=== PATIENT | male | born 1970 | race Caucasian/White ===

== ENCOUNTER 2018-11-21 09:54 | Emergency (ER) | payer BC, SELFPAY ==
[2018-11-21 10:00] VITALS: BP 137/84; PULSE 103; RESP 20; TEMP 36.5; O2SAT 99; BMI 41.0
--- NOTE | 2018-11-21 10:03 | DI.RAD.S_ITS ---
PROCEDURE: XR CHEST 2V INDICATIONS: short of breath TECHNIQUE: 2 views of the chest were acquired. COMPARISON: 07/30/15. FINDINGS: Surgical changes and devices: None. Lungs and pleura: Lungs are clear. No pleural effusions or pneumothorax. Mediastinum: Mediastinal contours are normal. Heart size is normal. Bones and chest wall: No suspicious bony abnormalities. Soft tissues appear unremarkable. IMPRESSION: No acute disease. No focal consolidation. Dictated by: Dion Boo M.D. on 11/21/2018 at 11:40 Approved by: Dion Boo M.D. on 11/21/2018 at 11:41
[2018-11-21 11:12] VITALS: BP 132/81; PULSE 92; RESP 17; O2SAT 96
--- NOTE | 2018-11-21 11:12 | PC.NURSE ---
pt reports, finished 5 day course of steroid yesterday for uvular edema, pt reports not better, now with chest tighntess, breathing not right. denies coughing. denies fever and vomiting. breath sound clear throughout.
[2018-11-21 12:24] LABS: Alanine Aminotransferase 95 IU/L (21-72); Albumin 4.1 g/dL (3.5-5.0); Albumin Globulin Ratio 1.5 (1.0-2.8); Alkaline Phosphatase 107 U/L (38-126); Aspartate Aminotransferase 45 IU/L (17-59); Bilirubin Total 0.6 mg/dL (0.2-1.3); Blood Urea Nitrogen 16 mg/dL (9-20); Calcium 8.8 mg/dL (8.4-10.2); Carbon Dioxide 30 mmol/L (22-32); Chloride 98 mmol/L (98-107); Creatine Kinase 62 U/L (55-170); Estimated Glomerular Filt Rate > 60.0 mL/min (>60); Globulin 2.8 g/dL (1.7-4.1); Glucose 81 mg/dL (70-100); HEMOLYSIS 16 (0-50); Sodium 138 mmol/L (137-145); Total Protein 6.9 g/dL (6.3-8.2)
[2018-11-21 12:28] LABS: Add Manual Diff / Slide Review NO; Basophils Absolute Auto 0 /uL (0-100); Basophils Percent Auto 0.2 % (0-2); Eosinophils Absolute Auto 200 /uL (0-450); Eosinophils Percent Auto 1.1 % (2-4); Hemoglobin 15.6 g/dL (13.5-17.5); Lymphocytes Absolute Auto 5700 /uL (1100-4500); Lymphocytes Percent Auto 32.7 % (25-40); Mean Corpuscular HGB Conc 33.3 % (30-36); Mean Corpuscular Hemoglobin 30.1 PG (26-34); Mean Corpuscular Volume 90.6 fL (80-100); Monocytes Absolute Auto 1300 /uL (0-900); Monocytes Percent Auto 7.7 % (3-14); Neutrophils Absolute Auto 10100 /uL (1500-7000); Neutrophils Percent Auto 58.3 % (50-75); Platelet Count 215 X10^3/uL (150-400); Red Blood Cell Count 5.19 X10^6/uL (4.5-5.9); Red Cell Distribution Width 13.8 % (11.6-14.8); White Blood Cell Count 17.3 X10^3/uL (4.5-11.0)
[2018-11-21 12:36] LABS: Troponin I < 0.012 ng/mL (0.01-0.034)
[2018-11-21 12:42] LABS: INR 0.9 (0.9-1.3); Prothrombin Time 10.5 SECONDS (10.1-12.7)
[2018-11-21 12:45] LABS: PTT Partial Thromboplastin Tim 29 SECONDS (26.4-36.2)
[2018-11-21 12:55] LABS: D Dimer < 200 ng/mL (<230)
--- NOTE | 2018-11-21 13:03 | ED.URI ---
HPI - URI/Sore Throat <Diana Castillo PA-C - Last Filed: 11/21/18 20:24> General Chief Complaint: Upper Respiratory Symptoms Stated Complaint: TROUBLE BREATHING Time Seen by Provider: 11/21/18 13:03 Source: patient and family Mode of arrival: ambulatory Limitations: no limitations History of Present Illness HPI Narrative: This 48-year-old male complains of gradually worsening sensation of pain and sticking ?down my esophagus? with eating. He states it is ?painful like rocks?. He states that he was referred to ENT for further evaluation and is supposed to have an appointment in about 6 weeks. He states about 2 weeks ago he was diagnosed with tonsillitis, strep negative, but had quite a bit of swelling and was treated with some prednisone for 5 days. He does not feel like that helped. He states that since that time, his difficulty swallowing has not been acutely worse that has been more persistent. He is able to swallow liquids without problem. He has not modified his diet, but states it is just more difficult for him to eat. He denies cough or wheeze. He denies chest congestion or fever. He has not had any earache or sinus symptoms. He states his chest feels tight, like he can't get a deep breath. he has a history of reactive airways and states his inhaler does seem to help that somewhat temporarily. He also has a history of acid reflux. He states that he has not had any chest pain aside from the pain with swallowing. He denies any new pain or swelling in his extremities or other new complaints today. Related Data Previous Rx's Medication Instructions Recorded albuterol sulfate 2.5 mg INHALATION Q2H PRN #180 ml 11/21/18 ipratropium-albuterol 3 ml INHALATION BID #90 ml 11/21/18 lidocaine HCl [Lidocaine Viscous] 10 ml PO Q4H PRN #200 ml 11/21/18 Allergies Allergy/AdvReac Type Severity Reaction Status Date / Time Penicillins [PENICILLINS] Allergy Unknown Unverified 11/12/17 12:31 Review of Systems <Diana Castillo PA-C - Last Filed: 11/21/18 20:24> Review of Systems ROS Unobtainable: All systems reviewed & are unremarkable except as noted in HPI and below PFSH <Diana Castillo PA-C - Last Filed: 11/21/18 20:24> Medical History (Updated 11/21/18 @ 14:51 by Diana Castillo PA-C) GERD (gastroesophageal reflux disease) (Acute) Reactive airways dysfunction syndrome (Acute) Carpal tunnel syndrome (Chronic 06/2017) Chronic back pain (Chronic Unknown) DDD (degenerative disc disease), cervical (Chronic 04/2017) Depression (Chronic Unknown) Edema (Chronic Unknown) Fibromyalgia (Chronic Unknown) Hyperlipemia (Chronic Unknown) Hypertension (Chronic Unknown) Migraines (Chronic Unknown) 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 HEENT: PERRL, EOMI, normal oropharynx, tonsils are large but not edematous, no exudate, uvula midline NECK: Thick, supple, no masses, trachea midline LUNGS: Clear to auscultation bilaterally, no cough on exam. CHEST: No TTP HEART: Rate and rhythm regular, normal S1 and S2, no S3 or S4. ABDOMEN: Soft, protuberant, nontender, nondistended, bowel sounds present x 4 quadrants, no masses palpable, no hepatosplenomegaly. EXTREMITIES: No edema, no calf tenderness DERMATOLOGIC: No jaundice or exanthem NEUROLOGIC: Alert and oriented with normal speech and coordination Initial Vital Signs Initial Vital Signs: Vital Signs Temperature 97.7 F 11/21/18 10:00 Pulse Rate 103 H 11/21/18 10:00 Respiratory Rate 20 11/21/18 10:00 Blood Pressure 137/84 11/21/18 10:00 Pulse Oximetry 99 11/21/18 10:00 <Hoa Smith DO - Last Filed: 11/22/18 07:30> Initial Vital Signs Initial Vital Signs: Vital Signs Temperature 97.7 F 11/21/18 10:00 Pulse Rate 103 H 11/21/18 10:00 Respiratory Rate 20 11/21/18 10:00 Blood Pressure 137/84 11/21/18 10:00 Pulse Oximetry 99 11/21/18 10:00 Course <Diana Castillo PA-C - Last Filed: 11/21/18 20:24> Additional Information: Patient is not feeling acutely worse today but mainly came in hoping to get some further evaluation and be able to see ENT sooner. Referral is already in place, but he has had more persistent dysphagia and odynophagia for about 2 weeks. He did report some improvement with GI cocktail and will continue this as needed and also restart his nebulizer treatments at home. He agreed to return if any acutely worsening symptoms Orders Ordered: Discontinued Medications Albuterol (Ventolin) 2.5 mg INH NOW ONE Stop: 11/21/18 13:20 Last Admin: 11/21/18 13:57 Dose: 2.5 mg Albuterol/Ipratropium (Duoneb) 3 ml INH NOW ONE Stop: 11/21/18 13:20 Last Admin: 11/21/18 13:57 Dose: 3 ml Al Hydrox/Mg Hydrox/Simethicone 20 ml/ Lidocaine HCl 15 ml 0 ml PO NOW ONE Stop: 11/21/18 13:20 Last Admin: 11/21/18 13:30 Dose: 35 ml Vital Signs - 8 hr 11/21/18 13:58 11/21/18 14:09 11/21/18 14:51 Pulse Rate 88 96 H Respiratory Rate 16 Blood Pressure [Left Arm] 106/71 111/67 Pulse Oximetry 98 <Hoa Smith, - Last Filed: 11/22/18 07:30> Orders Ordered: Discontinued Medications Albuterol (Ventolin) 2.5 mg INH NOW ONE Stop: 11/21/18 13:20 Last Admin: 11/21/18 13:57 Dose: 2.5 mg Albuterol/Ipratropium (Duoneb) 3 ml INH NOW ONE Stop: 11/21/18 13:20 Last Admin: 11/21/18 13:57 Dose: 3 ml Al Hydrox/Mg Hydrox/Simethicone 20 ml/ Lidocaine HCl 15 ml 0 ml PO NOW ONE Stop: 11/21/18 13:20 Last Admin: 11/21/18 13:30 Dose: 35 ml Vital Signs - 8 hr 11/21/18 13:58 11/21/18 14:09 11/21/18 14:51 Pulse Rate 88 96 H Respiratory Rate 16 Blood Pressure [Left Arm] 106/71 111/67 Pulse Oximetry 98 MDM - URI/Sore Throat <Diana Castillo PA-C - Last Filed: 11/21/18 20:24> Lab Data Attestation: I reviewed the patient's lab results. Result diagrams: 11/21/18 11:25 11/21/18 11:25 Lab Results 11/21/18 11/21/18 11/21/18 Range/Units 11:25 11:25 11:25 WBC 17.3 H (4.5-11.0) X10^3/uL RBC 5.19 (4.5-5.9) X10^6/uL Hgb 15.6 (13.5-17.5) g/dL Hct 47.0 (41-53) % MCV 90.6 (80-100) fL MCH 30.1 (26-34) PG MCHC 33.3 (30-36) % RDW 13.8 (11.6-14.8) % Plt Count 215 (150-400) X10^3/uL Neut % (Auto) 58.3 (50-75) % Lymph % (Auto) 32.7 (25-40) % [place] % (Auto) 7.7 (3-14) % Eos % (Auto) 1.1 L (2-4) % Baso % (Auto) 0.2 (0-2) % Neut # (Auto) 99611 H (0232-9104) /uL Lymph # (Auto) 5700 H (8878-7521) /uL [place] # (Auto) 1300 H (0-900) /uL Eos # (Auto) 200 (0-450) /uL Baso # (Auto) 0 (0-100) /uL PT 10.5 (10.1-12.7) SECONDS INR 0.9 (0.9-1.3) APTT 29 (26.4-36.2) SECONDS D-Dimer (<230) ng/mL Sodium 138 (137-145) mmol/L Potassium 4.0 (3.4-5.1) mmol/L Chloride 98 (98-107) mmol/L Carbon Dioxide 30 (22-32) mmol/L BUN 16 (9-20) mg/dL Creatinine 1.00 (0.66-1.25) mg/dL Estimated GFR > 60.0 (>60) mL/min BUN/Creatinine Ratio 16.0 (6-22) Glucose 81 (70-100) mg/dL Lactate (0.7-2.1) mmol/L Calcium 8.8 (8.4-10.2) mg/dL Total Bilirubin 0.6 (0.2-1.3) mg/dL AST 45 (17-59) IU/L ALT 95 H (21-72) IU/L Alkaline Phosphatase 107 (38-126) U/L Total Creatine Kinase 62 (55-170) U/L CK-MB (CK-2) TNP CK-MB (CK-2) Rel Index TNP Troponin I < 0.012 (0.01-0.034) ng/mL Total Protein 6.9 (6.3-8.2) g/dL Albumin 4.1 (3.5-5.0) g/dL Globulin 2.8 (1.7-4.1) g/dL Albumin/Globulin Ratio 1.5 (1.0-2.8) 11/21/18 11/21/18 Range/Units 11:25 13:05 WBC (4.5-11.0) X10^3/uL RBC (4.5-5.9) X10^6/uL Hgb (13.5-17.5) g/dL Hct (41-53) % MCV (80-100) fL MCH (26-34) PG MCHC (30-36) % RDW (11.6-14.8) % Plt Count (150-400) X10^3/uL Neut % (Auto) (50-75) % Lymph % (Auto) (25-40) % [place] % (Auto) (3-14) % Eos % (Auto) (2-4) % Baso % (Auto) (0-2) % Neut # (Auto) (2567-3537) /uL Lymph # (Auto) (4683-2614) /uL [place] # (Auto) (0-900) /uL Eos # (Auto) (0-450) /uL Baso # (Auto) (0-100) /uL PT (10.1-12.7) SECONDS INR (0.9-1.3) APTT (26.4-36.2) SECONDS D-Dimer < 200 (<230) ng/mL Sodium (137-145) mmol/L Potassium (3.4-5.1) mmol/L Chloride (98-107) mmol/L Carbon Dioxide (22-32) mmol/L BUN (9-20) mg/dL Creatinine (0.66-1.25) mg/dL Estimated GFR (>60) mL/min BUN/Creatinine Ratio (6-22) Glucose (70-100) mg/dL Lactate 1.5 (0.7-2.1) mmol/L Calcium (8.4-10.2) mg/dL Total Bilirubin (0.2-1.3) mg/dL AST (17-59) IU/L ALT (21-72) IU/L Alkaline Phosphatase (38-126) U/L Total Creatine Kinase (55-170) U/L CK-MB (CK-2) CK-MB (CK-2) Rel Index Troponin I (0.01-0.034) ng/mL Total Protein (6.3-8.2) g/dL Albumin (3.5-5.0) g/dL Globulin (1.7-4.1) g/dL Albumin/Globulin Ratio (1.0-2.8) Imaging Data Chest x-ray: Radiologist's impression: [address] [address] XRay Report Signed Patient: Angelita Sharif#: [id number] : 1970Acct:[id number] Age/Sex: 48 / MDate of Service: 11/21/18 Loc: ED Accession Number: [id number] Procedure: XR chest 2V Ordering Provider: Hoa Smith D.O. PROCEDURE: XR CHEST 2V INDICATIONS: short of breath TECHNIQUE: 2 views of the chest were acquired. COMPARISON: 07/30/15. FINDINGS: Surgical changes and devices: None. Lungs and pleura: Lungs are clear. No pleural effusions or pneumothorax. Mediastinum: Mediastinal contours are normal. Heart size is normal. Bones and chest wall: No suspicious bony abnormalities. Soft tissues appear unremarkable. IMPRESSION: No acute disease. No focal consolidation. Dictated by: Dion Boo M.D. on 11/21/2018 at 11:40 Approved by: Dion Boo M.D. on 11/21/2018 at 11:41 ECG Data Attestation: I personally reviewed and interpreted this ECG as follows: (Normal sinus rhythm rate 89, normal axis) <Hoa Smith DO - Last Filed: 11/22/18 07:30> Lab Data Lab Results 11/21/18 11/21/18 11/21/18 Range/Units 11:25 11:25 11:25 WBC 17.3 H (4.5-11.0) X10^3/uL RBC 5.19 (4.5-5.9) X10^6/uL Hgb 15.6 (13.5-17.5) g/dL Hct 47.0 (41-53) % MCV 90.6 (80-100) fL MCH 30.1 (26-34) PG MCHC 33.3 (30-36) % RDW 13.8 (11.6-14.8) % Plt Count 215 (150-400) X10^3/uL Neut % (Auto) 58.3 (50-75) % Lymph % (Auto) 32.7 (25-40) % [place] % (Auto) 7.7 (3-14) % Eos % (Auto) 1.1 L (2-4) % Baso % (Auto) 0.2 (0-2) % Neut # (Auto) 01395 H (1972-7778) /uL Lymph # (Auto) 5700 H (7037-3887) /uL [place] # (Auto) 1300 H (0-900) /uL Eos # (Auto) 200 (0-450) /uL Baso # (Auto) 0 (0-100) /uL PT 10.5 (10.1-12.7) SECONDS INR 0.9 (0.9-1.3) APTT 29 (26.4-36.2) SECONDS D-Dimer (<230) ng/mL Sodium 138 (137-145) mmol/L Potassium 4.0 (3.4-5.1) mmol/L Chloride 98 (98-107) mmol/L Carbon Dioxide 30 (22-32) mmol/L BUN 16 (9-20) mg/dL Creatinine 1.00 (0.66-1.25) mg/dL Estimated GFR > 60.0 (>60) mL/min BUN/Creatinine Ratio 16.0 (6-22) Glucose 81 (70-100) mg/dL Lactate (0.7-2.1) mmol/L Calcium 8.8 (8.4-10.2) mg/dL Total Bilirubin 0.6 (0.2-1.3) mg/dL AST 45 (17-59) IU/L ALT 95 H (21-72) IU/L Alkaline Phosphatase 107 (38-126) U/L Total Creatine Kinase 62 (55-170) U/L CK-MB (CK-2) TNP CK-MB (CK-2) Rel Index TNP Troponin I < 0.012 (0.01-0.034) ng/mL Total Protein 6.9 (6.3-8.2) g/dL Albumin 4.1 (3.5-5.0) g/dL Globulin 2.8 (1.7-4.1) g/dL Albumin/Globulin Ratio 1.5 (1.0-2.8) 11/21/18 11/21/18 Range/Units 11:25 13:05 WBC (4.5-11.0) X10^3/uL RBC (4.5-5.9) X10^6/uL Hgb (13.5-17.5) g/dL Hct (41-53) % MCV (80-100) fL MCH (26-34) PG MCHC (30-36) % RDW (11.6-14.8) % Plt Count (150-400) X10^3/uL Neut % (Auto) (50-75) % Lymph % (Auto) (25-40) % [place] % (Auto) (3-14) % Eos % (Auto) (2-4) % Baso % (Auto) (0-2) % Neut # (Auto) (4162-0157) /uL Lymph # (Auto) (6883-8643) /uL [place] # (Auto) (0-900) /uL Eos # (Auto) (0-450) /uL Baso # (Auto) (0-100) /uL PT (10.1-12.7) SECONDS INR (0.9-1.3) APTT (26.4-36.2) SECONDS D-Dimer < 200 (<230) ng/mL Sodium (137-145) mmol/L Potassium (3.4-5.1) mmol/L Chloride (98-107) mmol/L Carbon Dioxide (22-32) mmol/L BUN (9-20) mg/dL Creatinine (0.66-1.25) mg/dL Estimated GFR (>60) mL/min BUN/Creatinine Ratio (6-22) Glucose (70-100) mg/dL Lactate 1.5 (0.7-2.1) mmol/L Calcium (8.4-10.2) mg/dL Total Bilirubin (0.2-1.3) mg/dL AST (17-59) IU/L ALT (21-72) IU/L Alkaline Phosphatase (38-126) U/L Total Creatine Kinase (55-170) U/L CK-MB (CK-2) CK-MB (CK-2) Rel Index Troponin I (0.01-0.034) ng/mL Total Protein (6.3-8.2) g/dL Albumin (3.5-5.0) g/dL Globulin (1.7-4.1) g/dL Albumin/Globulin Ratio (1.0-2.8) Discharge Plan Departure Patient Disposition: Home Clinical Impression: Mild intermittent reactive airways dysfunction syndrome with acute exacerbation Dysphagia Qualifiers: Dysphagia type: unspecified Qualified Code(s): R13.10 - Dysphagia, unspecified Discharge Date/Time: 11/21/18 15:01 Interventions: ED Discharge Assessment Last Done: 11/21/18 15:01 Instructions: DI for Esophageal Dysphagia, DI for Reactive Airway Disease-Adult Activity Restrictions/Additional Instructions: Please start using the albuterol/ipratropium nebulizer treatment every morning and evening, and use the albuterol alone as often as needed in addition to that for tight chest. Start the viscous lidocaine (topical anesthetic) mixed with liquid Maalox or Mylanta every 3 or 4 hours as you needed (you may want to try this a little while before eating). Please also start taking [id number] omeprazole (Prilosec) 20 mg twice daily about 45 minutes prior to breakfast and dinner. Please avoid foods that may stick or scratch, i.e. meat, chips etc. Please call [facility] tomorrow and let them know you were seen in the emergency room so that you can find out about getting an earlier appointment. You do need more testing for your swallowing difficulties as we talked about. Please return right away if you have any acutely worsening symptoms as we discussed. Prescriptions: New ipratropium-albuterol 0.5 mg-3 mg(2.5 mg base)/3 mL solution for nebulization 3 ml INHALATION BID Qty: 90 RF: 0 albuterol sulfate 2.5 mg /3 mL (0.083 %) solution for nebulization 2.5 mg INHALATION Q2H PRN (Reason: tight chest) Qty: 180 RF: 0 lidocaine HCl [Lidocaine Viscous] 2 % solution 10 ml PO Q4H PRN (Reason: mouth pain) Qty: 200 RF: 0 Referrals: Aston Shah MD [Physician] - Shawanda Delgado DO [Primary Care Provider] - <Hoa Smith DO - Last Filed: 11/22/18 07:30> Cosign ED Attending Willardature Attestation: I was immediately available in the department for consultation. This documentation has been reviewed. Supervised by Hoa Smith DO
[2018-11-21] MEDS: MAG HYDROX/ALUMINUM/SIMETH SUS 20 ML, LIDOCAINE VISCOUS 2% 15 ML PO (13:30)
[2018-11-21 13:53] LABS: Lactate (Lactic Acid) 1.5 mmol/L (0.7-2.1)
[2018-11-21] MEDS: ALBUTEROL/IPRATROPIUM 3 ML AMPUL INH (13:57)
[2018-11-21] MEDS: ALBUTEROL 2.5 MG/3 ML NEB (ADULT) INH (13:57)
[2018-11-21 13:58] VITALS: PULSE 88; RESP 16; O2SAT 98
[2018-11-21 14:09] VITALS: BP 106/71
[2018-11-21 14:51] VITALS: BP 111/67; PULSE 96
--- NOTE | 2018-11-21 15:03 | PC.NURSE ---
conversing clearly and appropriate, oral mucous dry. uvula not seen, bilateral tonsils swelling not red.
== END 2018-11-21 15:01 | disposition home or self-care (01) ==
PROVIDERS: Emergency Medicine; Emergency Provider Internal Medicine; PCP Family Medicine
DX: J68.3 Other acute and subacute respiratory conditions due to chemicals, gases, fumes and vapors (principal); R13.10 Dysphagia, unspecified
CPT/HCPCS: 36415; 36591; 71046; 80053; 82550; 83605; 84484; 85025; 85379; 85610; 85730; 93005; 94640; 99283; 99285; J7613

== ENCOUNTER → 2018-12-22 08:53 | Outpatient (CLI) | payer BC, SELFPAY ==
--- NOTE | 2018-12-22 | DI.RAD.S_ITS ---
PROCEDURE: FL BARIUM SWALLOW INDICATIONS: DYSPHAGIA COMPARISON: None. FINDINGS: Function: There is on the delayed esophageal peristalsis. Spontaneous gastroesophageal reflux is seen to the level of the lower third of the esophagus Morphology: Air-contrast images demonstrate normal mucosal morphology. Single contrast views show no esophageal strictures, extrinsic mass effects, or diverticula. Limited images of the stomach demonstrate normal appearance. IMPRESSION: Spontaneous gastroesophageal reflux. Mild esophageal dysmotility. No stricture. Dictated by: Naren Berry M.D. on 12/22/2018 at 10:17 Approved by: Naren Berry M.D. on 12/22/2018 at 10:19
== END ==
PROVIDERS: PCP Family Medicine; Visit Provider Otolaryngology
DX: R13.10 Dysphagia, unspecified (principal); K21.9 Gastro-esophageal reflux disease without esophagitis; K22.4 Dyskinesia of esophagus
CPT/HCPCS: 74220

== ENCOUNTER → 2019-07-13 06:52 | Outpatient (CLI) | payer BC, SELFPAY ==
[2019-07-13 09:55] LABS: Alanine Aminotransferase 68 IU/L (<50); Albumin 4.3 g/dL (3.5-5.0); Albumin Globulin Ratio 1.5 (1.0-2.8); Alkaline Phosphatase 117 U/L (38-126); Aspartate Aminotransferase 40 IU/L (17-59); BUN Creatinine Ratio 11.8 (6-22); Bilirubin Total 0.6 mg/dL (0.2-1.3); Blood Urea Nitrogen 13 mg/dL (9-20); Calcium 9.7 mg/dL (8.4-10.2); Carbon Dioxide 27 mmol/L (22-32); Chloride 99 mmol/L (98-107); Cholesterol 150 mg/dL (140-199); Estimated Glomerular Filt Rate > 60.0 mL/min (>60); Globulin 2.8 g/dL (1.7-4.1); Glucose 127 mg/dL (70-100); HDL Cholesterol 24 mg/dL (40-60); HEMOLYSIS < 15 (0-50); LDL Cholesterol Calculated 71 mg/dL (<100); Potassium 4.1 mmol/L (3.4-5.1); Sodium 138 mmol/L (137-145); Total Protein 7.1 g/dL (6.3-8.2); Triglycerides 277 mg/dL (35-150)
== END ==
PROVIDERS: PCP Nurse Practitioner Family; Visit Provider Internal Medicine Cardiovascular Disease
DX: I10 Essential (primary) hypertension (principal); E88.81 Metabolic syndrome and other insulin resistance
CPT/HCPCS: 36415; 80053; 80061

== ENCOUNTER → 2020-01-25 15:42 | Outpatient (CLI) | payer BC, SELFPAY ==
[2020-01-25 16:58] LABS: Bacteria Urine None Seen
[2020-01-25 17:29] LABS: Hematocrit 46.1 % (41-53); Hemoglobin 16.1 g/dL (13.5-17.5); Mean Corpuscular HGB Conc 34.9 % (30-36); Mean Corpuscular Hemoglobin 30.9 PG (26-34); Mean Corpuscular Volume 88.7 fL (80-100); Platelet Count 224 X10^3/uL (150-400); White Blood Cell Count 7.8 X10^3/uL (4.5-11.0)
[2020-01-25 17:42] LABS: Appearance Urine UA CLEAR; Bilirubin Urine UA NEGATIVE (NEGATIVE); Color Urine UA YELLOW; Glucose Urine UA NEGATIVE (Negative); Ketones Urine UA NEGATIVE (NEGATIVE); Leukocyte Esterase Urine UA NEGATIVE (NEGATIVE); Nitrite Urine UA NEGATIVE (Negative); Occult Blood Urine UA NEGATIVE (Negative); Protein Urine UA NEGATIVE (Negative); Specific Gravity Urine UA 1.025 (1.000-1.035); Urobilinogen Urine UA 0.2 E.U./dL (0.2); pH Urine UA 5.5 (4.5-8.0)
[2020-01-25 17:43] LABS: Hemoglobin A1C% w Est Avg Glu 5.8 % (4.0-6.0)
[2020-01-25 17:52] LABS: Alanine Aminotransferase 71 IU/L (<50); Albumin 4.5 g/dL (3.5-5.0); Albumin Globulin Ratio 1.5 (1.0-2.8); Alkaline Phosphatase 111 U/L (38-126); Aspartate Aminotransferase 50 IU/L (17-59); BUN Creatinine Ratio 9.9 (6-22); Bilirubin Total 0.4 mg/dL (0.2-1.3); Blood Urea Nitrogen 10 mg/dL (9-20); Calcium 9.7 mg/dL (8.4-10.2); Carbon Dioxide 26 mmol/L (22-32); Chloride 104 mmol/L (98-107); Cholesterol 209 mg/dL (140-199); Estimated Glomerular Filt Rate > 60.0 mL/min (>60); Glucose 106 mg/dL (70-100); HDL Cholesterol 27 mg/dL (40-60); HEMOLYSIS < 15 (0-50); Potassium 3.7 mmol/L (3.4-5.1); Sodium 138 mmol/L (137-145); Total Protein 7.5 g/dL (6.3-8.2); Triglycerides 435 mg/dL (35-150)
[2020-01-25 18:07] LABS: Culture Indicated Urine Cult Not Indicated; RBC Urine 0-1/HPF (0-5/HPF); WBC Urine 0-1/HPF (0-5/HPF)
[2020-01-25 18:43] LABS: TSH w/ Reflex to FT4 1.41 uIU/mL (0.47-4.68)
== END ==
PROVIDERS: PCP Nurse Practitioner Family; Referring Provider Nurse Practitioner Family; Visit Provider Nurse Practitioner Family
DX: Z00.00 Encounter for general adult medical examination without abnormal findings (principal); R25.1 Tremor, unspecified; R63.1 Polydipsia; Z13.6 Encounter for screening for cardiovascular disorders
CPT/HCPCS: 36415; 80053; 80061; 81001; 83036; 84443; 85027

== ENCOUNTER → 2020-07-06 08:17 | Outpatient (CLI) | payer BC, SELFPAY ==
[2020-07-06 09:43] LABS: Alanine Aminotransferase 59 IU/L (<50); Albumin 4.4 g/dL (3.5-5.0); Albumin Globulin Ratio 1.5 (1.0-2.8); Alkaline Phosphatase 86 U/L (38-126); Aspartate Aminotransferase 46 IU/L (17-59); Bilirubin Total 0.6 mg/dL (0.2-1.3); Bilirubin Unconjugated 0.5 mg/dL (0.0-1.1); Cholesterol 131 mg/dL (140-199); HDL Cholesterol 27 mg/dL (40-60); HEMOLYSIS 19 (0-50); LDL Cholesterol Calculated 64 mg/dL (<100); Total Protein 7.4 g/dL (6.3-8.2); Triglycerides 198 mg/dL (35-150)
== END ==
PROVIDERS: PCP Nurse Practitioner Family; Referring Provider Nurse Practitioner Family; Visit Provider Nurse Practitioner Family
DX: E78.2 Mixed hyperlipidemia (principal); R74.8 Abnormal levels of other serum enzymes
CPT/HCPCS: 36415; 80061; 80076

== ENCOUNTER → 2020-07-11 09:13 | Outpatient (CLI) | payer BC, SELFPAY ==
[2020-07-11 12:38] LABS: BUN Creatinine Ratio 11.3 (6-22); Blood Urea Nitrogen 12 mg/dL (9-20); Calcium 9.3 mg/dL (8.4-10.2); Carbon Dioxide 27 mmol/L (22-32); Chloride 103 mmol/L (98-107); Estimated Glomerular Filt Rate > 60.0 mL/min (>60); Glucose 103 mg/dL (70-100); HEMOLYSIS < 15 (0-50); Potassium 4.1 mmol/L (3.4-5.1); Sodium 138 mmol/L (137-145)
== END ==
PROVIDERS: PCP Nurse Practitioner Family; Referring Provider Nurse Practitioner Family; Visit Provider Nurse Practitioner Family
DX: R25.1 Tremor, unspecified (principal)
CPT/HCPCS: 36415; 80048

== ENCOUNTER → 2020-11-25 07:57 | Outpatient (CLI) | payer BC, SELFPAY ==
[2020-11-25 09:59] LABS: Add Manual Diff / Slide Review NO; Basophils Absolute Auto 300 /uL (0-100); Basophils Percent Auto 4.5 % (0-2); Eosinophils Absolute Auto 100 /uL (0-450); Eosinophils Percent Auto 1.5 % (2-4); Hematocrit 43.4 % (41-53); Lymphocytes Absolute Auto 2300 /uL (1100-4500); Lymphocytes Percent Auto 33.9 % (25-40); Mean Corpuscular HGB Conc 34.5 % (30-36); Mean Corpuscular Hemoglobin 30.5 PG (26-34); Mean Corpuscular Volume 88.3 fL (80-100); Monocytes Absolute Auto 500 /uL (0-900); Monocytes Percent Auto 7.7 % (3-14); Neutrophils Absolute Auto 3500 /uL (1500-7000); Neutrophils Percent Auto 52.4 % (50-75); Platelet Count 187 X10^3/uL (150-400); Red Blood Cell Count 4.92 X10^6/uL (4.5-5.9); Red Cell Distribution Width 12.8 % (11.6-14.8); White Blood Cell Count 6.7 X10^3/uL (4.5-11.0)
[2020-11-25 10:17] LABS: Alanine Aminotransferase 53 IU/L (<50); Albumin 4.1 g/dL (3.5-5.0); Albumin Globulin Ratio 1.6 (1.0-2.8); Alkaline Phosphatase 114 U/L (38-126); Aspartate Aminotransferase 43 IU/L (17-59); BUN Creatinine Ratio 10.6 (6-22); Bilirubin Total 0.3 mg/dL (0.2-1.3); Blood Urea Nitrogen 12 mg/dL (9-20); Calcium 9.1 mg/dL (8.4-10.2); Carbon Dioxide 26 mmol/L (22-32); Chloride 103 mmol/L (98-107); Estimated Glomerular Filt Rate > 60.0 mL/min (>60); Globulin 2.6 g/dL (1.7-4.1); Glucose 102 mg/dL (70-100); HEMOLYSIS < 15 (0-50); Potassium 4.4 mmol/L (3.4-5.1); Sodium 139 mmol/L (137-145); Total Protein 6.7 g/dL (6.3-8.2)
== END ==
PROVIDERS: PCP Nurse Practitioner Family; Referring Provider Nurse Practitioner Family; Visit Provider Nurse Practitioner Family
DX: K76.0 Fatty (change of) liver, not elsewhere classified (principal)
CPT/HCPCS: 36415; 80053; 85025

== ENCOUNTER → 2020-12-26 18:32 | Outpatient (CLI) | payer BC, SELFPAY ==
--- NOTE | 2020-12-26 18:34 | DI.MRI.S_ITS ---
PROCEDURE: MR LUMBAR SPINE WO CON INDICATIONS: persisting low back pain TECHNIQUE: Noncontrast sagittal T1 spin echo and T2 fast echo, sagittal STIR, axial T1 and T2 fast spin echo through the lumbar spine. In cases with scoliosis, additional coronal T2 fast spin echo may be performed. COMPARISON: [facility], MR, MR LUMBAR SPINE WITHOUT CONTRAST, 07/23/2017, 14:05. [facility], CR, XR LUMBAR SPINE 2 OR 3VW, 04/20/2015, 15:45. FINDINGS: Image quality: Excellent. Alignment and Curvature: 5 lumbar type vertebral bodies are present by plain film. There is mild, grade 1 retrolisthesis of L1 on L2, L2 on L3, L3 on L4, L4 on L5, and L5 on S1. Bone Marrow: Marrow is of normal overall signal. No acute vertebral body compression fractures. Mild reactive signal within the endplates adjacent to the L1-L2, L2-L3, L3-L4, and L4-L5 intervertebral discs. Spinal Cord: Conus medullaris terminates at the T12-L1 disc space level. Visualized cord demonstrates normal signal and size. Paraspinous Soft Tissues: No paravertebral masses. T12-L1: Mild disc height loss and desiccation. Mild diffuse disc bulge. Mild canal stenosis. No foraminal stenosis. No significant change. L1-L2: Moderate disc height loss and desiccation. Mild diffuse disc bulge. Mild facet and ligamentum flavum hypertrophy. Mild epidural lipomatosis. Mild canal stenosis. Mild bilateral foraminal stenosis. No significant change. L2-L3: Moderate disc height loss and desiccation. Mild diffuse disc bulge with small broad-based superimposed left posterolateral protrusion. Mild facet and ligamentum flavum hypertrophy. Mild epidural lipomatosis. Mild canal stenosis. Mild bilateral foraminal stenosis. No significant change. L3-L4: Mild disc desiccation and diffuse disc bulge with small superimposed broad-based right posterolateral and far lateral protrusion. Mild facet and ligamentum flavum hypertrophy. Mild canal stenosis. Mild right greater than left foraminal stenosis. No significant change. L4-L5: Moderate disc desiccation. Mild disc height loss and diffuse disc bulge. Mild facet and ligamentum flavum hypertrophy. Mild canal stenosis. Moderate left and mild right foraminal stenosis. No significant change. L5-S1: Mild disc height loss. Mild disc desiccation. Moderate diffuse disc bulge. Mild bilateral facet hypertrophy. Mild canal stenosis. Moderate subarticular foraminal stenosis bilaterally. No significant change. IMPRESSION: 1. Multilevel degenerative disc and facet disease, as well as ligamentum flavum hypertrophy and epidural lipomatosis. 2. Mild multilevel canal stenosis. 3. Multilevel foraminal stenoses, worst at L4-L5 and L5-S1 where there are associated moderate foraminal stenosis present. Dictated by: Kerry Bob M.D. on 12/27/2020 at 8:51 Approved by: Kerry Bob M.D. on 12/27/2020 at 9:01
== END ==
PROVIDERS: PCP Nurse Practitioner Family; Referring Provider Nurse Practitioner Family; Visit Provider Nurse Practitioner Family
DX: M51.36 Other intervertebral disc degeneration, lumbar region (principal); M51.26 Other intervertebral disc displacement, lumbar region; M48.061 Spinal stenosis, lumbar region without neurogenic claudication; M48.07 Spinal stenosis, lumbosacral region
CPT/HCPCS: 72148

== ENCOUNTER 2021-05-23 12:57 | Emergency (ER) | payer OTHER, SELFPAY ==
[2021-05-23 13:06] VITALS: BP 141/84; PULSE 102; RESP 15; TEMP 37.1; O2SAT 96; BMI 42.1
--- NOTE | 2021-05-23 14:06 | DI.RAD.S_ITS ---
PROCEDURE: XR HIP W PEL IF DONE LT 2V INDICATIONS: left hip pain x1 month, atraumatic TECHNIQUE: AP pelvis with lateral view of the left hip. COMPARISON: None. FINDINGS: Bones: No acute fractures or dislocations. Pelvic ring appears intact. No suspicious bony lesions. Mild degenerative changes are seen in the hips bilaterally. Degenerative changes are also noted in the included lower lumbar spine. Soft tissues: The visualized bowel gas pattern is normal. No suspicious soft tissue calcifications. IMPRESSION: No acute osseous abnormality. Mild bilateral hip osteoarthrosis. If the symptoms persist, consider cross sectional imaging such as MRI or CT for further assessment. Dictated by: Steve Galan M.D. on 05/23/2021 at 14:24 Approved by: Steve Galan M.D. on 05/23/2021 at 14:26
[2021-05-23 14:34] VITALS: BP 129/78; PULSE 89; RESP 18; O2SAT 96
--- NOTE | 2021-05-23 14:48 | ED.EXTPRO ---
HPI - Extremity Problem <Holley Benito, [facility] - Last Filed: 05/23/21 18:49> General Chief complaint: Extremity Problem,Nontraumatic Stated complaint: Pain in leg, groin,hip. checked out for blood clot Time Seen by Provider: 05/23/21 13:36 Source: patient Mode of arrival: Ambulatory Limitations: no limitations History of Present Illness HPI Narrative: This is a 50-year-old male who presents to the emergency department with 1 month of left groin and left hip pain. Patient reports that walking makes his pain worse 2nd most painful is sitting, lying down relieves his pain. He describes this constant pain as a dull ache which travels down his leg and stops at his knee. He does not describe this feeling similar to neuropathic pain or sciatica. He denies having any radiation of this pain into his back. He states he has had low back pain for 20 years with sciatica calf, and this feels very different than not. He complains that sometimes he feels his hip locking up when he is getting in and out of his truck. He denies any recent illness, he does endorse gaining approximately 30 lb this year. He complains of pain with flexion of his hip, less pain with extension. He denies any numbness or tingling, imbalance, chest pain, shortness of breath, recent fever or illness. Related Data Previous Rx's Medication Instructions Recorded diltiazem HCl 120 mg 120 mg PO DAILY #90 cap 12/12/20 capsule,extended release 24 hr duloxetine 60 mg capsule,delayed 60 mg PO BID #90 cap 12/12/20 release metoprolol succinate 50 mg 75 mg PO DAILY #120 tab 12/12/20 tablet,extended release 24 hr omeprazole 20 mg capsule,delayed 20 mg PO DAILY #90 cap 12/12/20 release rosuvastatin 10 mg tablet 10 mg PO DAILY #90 tab 12/12/20 pregabalin 150 mg capsule (Lyrica) 300 mg PO DAILY #120 cap 02/20/21 diclofenac sodium 1 % topical gel 2 g TOPICAL QID #100 g 02/22/21 cyclobenzaprine 5 mg tablet See Rx Instructions .ROUTE 04/18/21 .COMPLEX #120 tab Allergies Allergy/AdvReac Type Severity Reaction Status Date / Time Penicillins [PENICILLINS] Allergy Unknown Verified 05/23/21 13:08 Review of Systems <PRASHANTH Viera - Last Filed: 05/23/21 18:49> Review of Systems Narrative: General: denies fever, chills Head/Neck: denies headache, neck pain Eyes: denies visual changes, eye pain Cardio: denies chest pain, palpitations Respiratory: denies shortness of breath, cough GI: denies abdominal pain, nausea, vomiting, or diarrhea : denies dysuria, hematuria MSK: Endorses left hip pain, worse with movement, denies muscle weakness Skin: denies rash, itching Neuro: denies numbness, tingling Patient History <PRASHANTH Viera - Last Filed: 05/23/21 18:49> Medical History BMI 40.0-44.9, adult Brain lesion (2018) Carpal tunnel syndrome (06/2017) Chicken pox Chronic back pain (Unknown) Chronic low back pain with left-sided sciatica DDD (degenerative disc disease), cervical (04/2017) Depression (Unknown) Edema (Unknown) Elevated liver enzymes Fibromyalgia (2016) Foot pain GERD (gastroesophageal reflux disease) Gout Hyperlipemia (Unknown) Hypertension (Unknown) Lumbar disc herniation Lumbar disc narrowing Migraines (Unknown) Mild intermittent asthma Mixed hyperlipidemia Nodule of right lung (08/2015) Nonalcoholic fatty liver disease (2018) Plantar warts Polydipsia Reactive airways dysfunction syndrome Rheumatoid arthritis Shakiness Shoulder pain Sleep apnea Tachycardia (2014) Weight gain Surgical History Anesthesia Hx of shoulder surgery (04/2015) Family History Father Hypertension Mother History of heart disease Stroke Social History Smoking Status: Current every day smoker Tobacco: How many years used: 27 second hand exposure: No alcohol intake: current (once [id number]) substance use type: does not use, former substance user, marijuana and crack/cocaine Smoking Status: Current every day smoker tobacco type: vaping alcohol intake frequency: holidays/special occasions only Substance Use Type: does not use Exam <PRASHANTH Viera - Last Filed: 05/23/21 18:49> Narrative Exam Narrative: Independently reviewed vitals signs and nursing notes. General: Awake, alert, nontoxic, no cardiorespiratory distress Head/Neck: Atraumatic, neck full range of motion Eyes: EOMI, conjunctiva normal Nose: nares patent, no rhinorrhea Mouth/Throat: moist mucus membranes, posterior pharynx normal, no oral lesions Cardio: Regular rate and rhythm, no peripheral edema Respiratory: respirations unlabored without wheezing, stridor, or rales. No retractions. GI: Abdomen soft, rounded, nontender MSK: Moves all extremities, neurovascularly intact, trace edema to bilateral lower extremities, PT and DP 2+ and equal bilateral lower extremities, patient does not have calf pain to palpation bilaterally, pain is elicited with flexion of his left hip, relieved with extension. No popping or abnormalities with range of motion. Patient does have full range of motion without deficit. Skin: Normal capillary refill, no rash Neuro: Normal speech and cognition, normal gait Initial Vital Signs Initial Vital Signs: Vital Signs Temperature 98.7 F 05/23/21 13:06 Pulse Rate 102 H 05/23/21 13:06 Respiratory Rate 15 05/23/21 13:06 Blood Pressure 141/84 H 05/23/21 13:06 Pulse Oximetry 96 05/23/21 13:06 <Emre Garcia DO - Last Filed: 05/23/21 19:05> Initial Vital Signs Initial Vital Signs: Vital Signs Temperature 98.7 F 05/23/21 13:06 Pulse Rate 102 H 05/23/21 13:06 Respiratory Rate 15 05/23/21 13:06 Blood Pressure 141/84 H 05/23/21 13:06 Pulse Oximetry 96 05/23/21 13:06 Course <PRASHANTH Viera - Last Filed: 05/23/21 18:49> Orders Ordered: ED Orders 05/23/21 14:06 XR hip w pel if done LT 2V Stat Discontinued Medications Ketorolac Tromethamine (Ketorolac 30 Mg/Ml Vial) 30 mg IM NOW ONE Stop: 05/23/21 15:01 Last Admin: 05/23/21 15:00 Dose: 30 mg Documented by: AMOL Vital Signs Vital signs: Vital Signs - 8 hr 05/23/21 13:06 05/23/21 14:34 Temperature 98.7 F Pulse Rate 102 H 89 Respiratory Rate 15 18 Blood Pressure 141/84 H 129/78 Pulse Oximetry 96 96 <Emre Garcia DO - Last Filed: 05/23/21 19:05> Orders Ordered: ED Orders 05/23/21 14:06 XR hip w pel if done LT 2V Stat Discontinued Medications Ketorolac Tromethamine (Ketorolac 30 Mg/Ml Vial) 30 mg IM NOW ONE Stop: 05/23/21 15:01 Last Admin: 05/23/21 15:00 Dose: 30 mg Documented by: AMOL Vital Signs Vital signs: Vital Signs - 8 hr 05/23/21 13:06 05/23/21 14:34 Temperature 98.7 F Pulse Rate 102 H 89 Respiratory Rate 15 18 Blood Pressure 141/84 H 129/78 Pulse Oximetry 96 96 MDM - Extremity (Nontraumatic) <TIFFANY VieraP - Last Filed: 05/23/21 18:49> Imaging Data Lt hip XR: Radiologist's Impression: PROCEDURE: XR HIP W PEL IF DONE LT 2V INDICATIONS: left hip pain x1 month, atraumatic TECHNIQUE: AP pelvis with lateral view of the left hip. COMPARISON: None. FINDINGS: Bones: No acute fractures or dislocations. Pelvic ring appears intact. No suspicious bony lesions. Mild degenerative changes are seen in the hips bilaterally. Degenerative changes are also noted in the included lower lumbar spine. Soft tissues: The visualized bowel gas pattern is normal. No suspicious soft tissue calcifications. IMPRESSION: No acute osseous abnormality. Mild bilateral hip osteoarthrosis. If the symptoms persist, consider cross sectional imaging such as MRI or CT for further assessment. Dictated by: Steve Galan M.D. on 05/23/2021 at 14:24 Approved by: Steve Galan M.D. on 05/23/2021 at 14:[address] [facility] Narrative Medical decision making narrative: 50-year-old male presents to the emergency department for 1 month of left hip pain without trauma, he states this pain starts in his groin and goes deep into his hip. X-ray hip shows mild osteoarthrosis of bilateral hips. On exam his pain was elicited with flexion and when bearing weight. No signs of dislocation or fracture on x-ray. This is most likely degenerative changes related to body habitus. Low suspicion for DVT, patient does not have unilateral edema in lower extremity, no calf pain on palpation, his pain does not extend past his knee. Low suspicion for infectious process as patient does not have any erythema, warmth, local edema, or lymphadenopathy. Considered avascular necrosis, trochanteric bursitis, lumbar disc herniation and facet joint degenerative arthritis, septic arthritis, gout, rheumatoid arthritis. Vital signs were within normal limits for his exam today. Patient is appropriate and amenable to discharge home. Vital signs are stable on repeat examination is unremarkable. Patient has been informed of results. Patient has been given strict return to ER precautions for any new or worsening symptoms. Patient understands to follow up closely with outpatient providers as instructed. Patient understands plan and agrees to discharge home. All questions and concerns answered at this time. Discharge Plan Departure Patient Disposition: Home Clinical Impression: Acute pain of left hip Activity Restrictions/Additional Instructions: Delfino, it was nice to me today I am sorry about the pain you've been having in your hip and leg. Since it has been 1 month of this pain and there are no bony abnormalities on your x-ray except for bilateral hip osteoarthrosis, I would like to refer you to your PCP and orthopedics for further care and follow-up on this matter. I would also like you to make an appointment with her PCP to discuss the increased drinking of water and increased urination that you mentioned. This does not seem to be neuropathic pain, or a blood clot, your x-ray does show mild bilateral hip osteoarthrosis. If you have increased swelling of your left leg, fever, worsening pain or the inability to bear weight please return to the emergency department. *You have been diagnosed with [acute left hip pain without trauma] *What to do: *Please continue to take your regular medications as directed. [ ] New medication prescriptions sent to your pharmacy: [ ] [ ] New medication written as a paper prescription [x ] No new medications given *Please follow up with your primary care provider in 2-3 days, call for an appointment. Let them know you were seen in the Emergency Department and that we ask that you be seen in follow up. We will electronically transmit a record of today's note if your PCP is in our system *If you do not have a primary care provider please contact the [facility] Resource line at [phone]. They will ask some questions about your medical history and help get you set up with a doctor in the community. *Return to Emergency Department if you should have any new, worsening or concerning symptoms, such as [fever greater than 101F, chills, worsening pain, persistent vomiting or other bothersome symptoms] PROCEDURE: XR HIP W PEL IF DONE LT 2V INDICATIONS: left hip pain x1 month, atraumatic TECHNIQUE: AP pelvis with lateral view of the left hip. COMPARISON: None. FINDINGS: Bones: No acute fractures or dislocations. Pelvic ring appears intact. No suspicious bony lesions. Mild degenerative changes are seen in the hips bilaterally. Degenerative changes are also noted in the included lower lumbar spine. Soft tissues: The visualized bowel gas pattern is normal. No suspicious soft tissue calcifications. IMPRESSION: No acute osseous abnormality. Mild bilateral hip osteoarthrosis. If the symptoms persist, consider cross sectional imaging such as MRI or CT for further assessment. Dictated by: Steve Galan M.D. on 05/23/2021 at 14:24 Approved by: Steve Galan M.D. on 05/23/2021 at 14:26 Prescriptions: No Action pregabalin [Lyrica] 150 mg capsule 300 mg PO DAILY Qty: 120 RF: 1 cyclobenzaprine 5 mg tablet See Rx Instructions .ROUTE .COMPLEX Qty: 120 RF: 0 diltiazem HCl 120 mg capsule,extended release 24hr 120 mg PO DAILY Qty: 90 RF: 1 duloxetine 60 mg capsule,delayed release(DR/EC) 60 mg PO BID Qty: 90 RF: 2 metoprolol succinate 50 mg tablet extended release 24 hr 75 mg PO DAILY Qty: 120 RF: 2 omeprazole 20 mg capsule,delayed release(DR/EC) 20 mg PO DAILY Qty: 90 RF: 2 rosuvastatin 10 mg tablet 10 mg PO DAILY Qty: 90 RF: 3 diclofenac sodium 1 % gel 2 g topical QID Qty: 100 RF: 0 Referrals: Mar Gan ARNP [Primary Care Provider] - 3-5 days Baylee Chapman MD [Physician] - 5-7 days (please call for an appointment for follow-up of your left hip pain) <Emre Garcia, - Last Filed: 05/23/21 19:05> Cosign ED Attending Cosignature Attestation: Dr Garcia Co-Sign Statement: I was available for consultation during this patient's emergency department visit. This chart is signed by myself for administrative purposes only. I did not have direct contact with this patient during this visit. They were seen independently by the APC.
[2021-05-23] MEDS: KETOROLAC 30 MG/ML VIAL IM (15:00)
== END 2021-05-23 15:16 | disposition home or self-care (01) ==
PROVIDERS: Emergency Provider Nurse Practitioner Critical Care Medicine; PCP Nurse Practitioner Family
DX: M25.552 Pain in left hip (principal)
CPT/HCPCS: 73502; 96372; 99283; J1885

== ENCOUNTER → 2021-11-28 08:33 | Outpatient (CLI) | payer BC, SELFPAY ==
[2021-11-28 09:05] LABS: Hematocrit 41.4 % (41-53); Hemoglobin 14.3 g/dL (13.5-17.5); Mean Corpuscular HGB Conc 34.6 % (30-36); Mean Corpuscular Hemoglobin 30.5 PG (26-34); Mean Corpuscular Volume 88.1 fL (80-100); Platelet Count 185 X10^3/uL (150-400); Red Cell Distribution Width 13.2 % (11.6-14.8); White Blood Cell Count 5.5 X10^3/uL (4.5-11.0)
[2021-11-28 09:24] LABS: Alanine Aminotransferase 83 IU/L (<50); Albumin 4.3 g/dL (3.5-5.0); Albumin Globulin Ratio 1.6 (1.0-2.8); Alkaline Phosphatase 104 U/L (38-126); Aspartate Aminotransferase 54 IU/L (17-59); BUN Creatinine Ratio 10.7 (6-22); Bilirubin Total 0.5 mg/dL (0.2-1.3); Blood Urea Nitrogen 12 mg/dL (9-20); Carbon Dioxide 29 mmol/L (22-32); Chloride 103 mmol/L (98-107); Cholesterol 121 mg/dL (140-199); Estimated Glomerular Filt Rate > 60 mL/min (>60); Globulin 2.7 g/dL (1.7-4.1); Glucose 114 mg/dL (70-100); HDL Cholesterol 29 mg/dL (40-60); HEMOLYSIS < 15 (0-50); LDL Cholesterol Calculated 56 mg/dL (<100); Potassium 4.2 mmol/L (3.4-5.1); Sodium 140 mmol/L (137-145); Triglycerides 181 mg/dL (35-150)
== END ==
PROVIDERS: PCP Family Medicine; Referring Provider Nurse Practitioner Family; Visit Provider Nurse Practitioner Family
DX: E78.2 Mixed hyperlipidemia (principal); I10 Essential (primary) hypertension; Z00.00 Encounter for general adult medical examination without abnormal findings
CPT/HCPCS: 36415; 80053; 80061; 85027

== ENCOUNTER → 2022-05-21 08:27 | Outpatient (CLI) | payer BC, SELFPAY ==
[2022-05-21 09:56] LABS: Erythrocyte Sedimentation Rate 3 MM/HR (0-15)
[2022-05-21 10:20] LABS: C-Reactive Protein Quant 0.7 mg/dL (<1.0); Uric Acid 5.8 mg/dL (3.5-8.5)
[2022-05-21 10:26] LABS: Rheumatoid Factor < 8.6 IU/mL (<12.0)
[2022-05-24 18:13] LABS: ANA Screen, IFA Positive (.)
== END ==
PROVIDERS: PCP Family Medicine; Referring Provider Family Medicine; Visit Provider Family Medicine
DX: G89.29 Other chronic pain (principal); M10.9 Gout, unspecified; M54.42 Lumbago with sciatica, left side; M06.9 Rheumatoid arthritis, unspecified; R21 Rash and other nonspecific skin eruption
CPT/HCPCS: 36415; 84550; 85651; 86038; 86140; 86430

== ENCOUNTER → 2022-11-27 08:46 | Outpatient (CLI) | payer BC, SELFPAY ==
[2022-11-27 10:38] LABS: Alanine Aminotransferase 38 IU/L (<50); Albumin 4.5 g/dL (3.5-5.0); Albumin Globulin Ratio 1.5 (1.0-2.8); Alkaline Phosphatase 79 U/L (38-126); Aspartate Aminotransferase 33 IU/L (17-59); BUN Creatinine Ratio 13.3 (6-22); Bilirubin Total 0.5 mg/dL (0.2-1.3); Blood Urea Nitrogen 12 mg/dL (9-20); Calcium 9.1 mg/dL (8.4-10.2); Carbon Dioxide 29 mmol/L (22-32); Chloride 103 mmol/L (98-107); Cholesterol 94 mg/dL (140-199); Estimated Glomerular Filt Rate > 60 mL/min (>60); Globulin 3.1 g/dL (1.7-4.1); Glucose 88 mg/dL (70-100); HDL Cholesterol 26 mg/dL (40-60); HEMOLYSIS 17 (0-50); LDL Cholesterol Calculated 46 mg/dL (<100); Sodium 140 mmol/L (137-145); Total Protein 7.6 g/dL (6.3-8.2); Triglycerides 108 mg/dL (35-150); Uric Acid 6.3 mg/dL (3.5-8.5)
[2022-11-28 09:48] LABS: x Labcorp Estim. Avg Glu (eAG) 108 mg/dL (.); x Labcorp Hemoglobin A1c 5.4 % (4.8-5.6)
[2022-12-05 09:05] LABS: Percent Free Testosterone 2.15 % (1.50-4.20); Testosterone Free 7.35 ng/dL (5.00-21.00); Testosterone Total 341.9 ng/dL (264.0-916.0)
== END ==
PROVIDERS: PCP Family Medicine; Referring Provider Family Medicine; Visit Provider Family Medicine
DX: E78.2 Mixed hyperlipidemia (principal); I10 Essential (primary) hypertension; M05.79 Rheumatoid arthritis with rheumatoid factor of multiple sites without organ or systems involvement; R79.89 Other specified abnormal findings of blood chemistry
CPT/HCPCS: 36415; 80053; 80061; 83036; 84402; 84403; 84550

== ENCOUNTER 2023-07-30 13:39 | Emergency (ER) | payer SELFPAY ==
[2023-07-30 13:41] VITALS: BP 169/91; PULSE 114; RESP 20; TEMP 36.3; O2SAT 97; BMI 34.9
--- NOTE | 2023-07-30 13:50 | DI.RAD.S_ITS ---
PROCEDURE: XR FINGER LT MIN 2V INDICATIONS: cut middle finger with saw #3 TECHNIQUE: AP hand, 2 views of the middle finger(s) acquired. COMPARISON: None. FINDINGS: Bones: On the oblique view, a cortical irregularity consistent with a fracture of the radial aspect of the distal phalanx at the DIP joint is seen. Soft tissues: No suspicious soft tissue calcifications. IMPRESSION: Nondisplaced fracture of the radial aspect of the distal phalanx of the DIP joint. Dictated by: Amol Acuña M.D. on 07/30/2023 at 14:44 Approved by: Amol Acuña M.D. on 07/30/2023 at 14:46
--- NOTE | 2023-07-30 15:07 | ED_ITS ---
HPI - Extremity Injury (Upper) <Zaki Sandy PA-C - Last Filed: 07/30/23 16:48> General Chief Complaint: Extremity Injury, Upper Stated Complaint: fingers cut w skill saw Time Seen by Provider: 07/30/23 14:06 Source: patient Mode of arrival: Ambulatory History of Present Illness HPI narrative: 53-year-old male presents to the ED status post a left middle finger injury sustained just prior to arrival. Patient was using a skill saw on some wood, when accidentally the saw injured his left middle finger. Bleeding was controlled with pressure. Patient is not on blood thinners. Patient denies numbness, tingling, weakness. Patient endorses full range of motion. Patient's tetanus is up-to-date. Related Data Previous Rx's Medication Instructions Recorded cyclobenzaprine 5 mg tablet See Rx Instructions .Route 12/10/22 .COMPLEX #180 tabs metoprolol succinate 25 mg 25 mg PO DAILY #90 tabs 12/17/22 tablet,extended release 24 hr rosuvastatin 5 mg tablet 5 mg PO BEDTIME #90 tabs 12/17/22 diltiazem HCl 120 mg 120 mg PO DAILY #90 caps 02/03/23 capsule,extended release 24 hr duloxetine 60 mg capsule,delayed 60 mg PO DAILY #90 caps 02/13/23 release pregabalin 300 mg capsule 300 mg PO DAILY #90 caps 06/04/23 omeprazole 20 mg capsule,delayed 20 mg PO DAILY #90 caps 06/23/23 release Allergies Allergy/AdvReac Type Severity Reaction Status Date / Time Penicillins [PENICILLINS] Allergy Unknown Verified 12/17/22 14:21 Review of Systems <Zaki Sandy PA-C - Last Filed: 07/30/23 16:48> Constitutional Constitutional: Denies chills, Denies fatigue, Denies fever(s), Denies frequent falls, Denies lethargy and Denies weakness Eyes Eyes: Denies change in vision, Denies eye discharge, Denies irritation and Denies loss of vision ENT Ears, Nose, Mouth, and Throat: Denies change in voice, Denies dizziness, Denies neck pain, Denies sore throat and Denies throat swelling Cardiovascular Cardiovascular: Denies chest pain, Denies irregular heart rhythm, Denies lightheadedness, Denies palpitations, Denies dyspnea, Denies dyspnea on exertion and Denies orthopnea Respiratory Respiratory: Denies cough, Denies dyspnea, Denies dyspnea on exertion and Denies wheezing Gastrointestinal Gastrointestinal: Denies abdominal pain, Denies change in bowel habits, Denies diarrhea, Denies nausea and Denies vomiting Musculoskeletal Musculoskeletal: Denies neck pain and Denies numbness Integumentary/Breasts Skin/Breast: Denies pruritus, Denies erythema, Denies rash and Denies wounds Comments: Laceration injury to left middle finger Neurologic Neurologic: Denies behavioral changes, Denies confusion, Denies dizziness, Denies frequent falls, Denies loss of vision, Denies numbness and Denies weakness Psychiatric Psychiatric: Denies anxiety, Denies behavioral changes, Denies confusion, Denies depression, Denies homicidal ideation and Denies suicidal ideation Endocrine Endocrine: Denies fatigue, Denies flushing and Denies palpitations Hematologic/Lymphatic Hematologic/Lymphatic: Denies easy bruising Allergic/Immunologic Allergic/Immunologic: Denies urticaria, Denies throat swelling and Denies wheezing Patient History <Zaki Sandy PA-C - Last Filed: 07/30/23 16:48> Medical History BMI 40.0-44.9, adult Brain lesion (2018) Carpal tunnel syndrome (06/2017) Chicken pox Chronic back pain (Unknown) Chronic low back pain with left-sided sciatica DDD (degenerative disc disease), cervical (04/2017) Depression (Unknown) Edema (Unknown) Elevated liver enzymes Fibromyalgia (2016) Foot pain GERD (gastroesophageal reflux disease) Gout Hyperlipemia (Unknown) Hypertension (Unknown) Lumbar disc herniation Lumbar disc narrowing Lung nodule seen on imaging study Migraines (Unknown) Mild intermittent asthma Mixed hyperlipidemia Nodule of right lung (08/2015) Nonalcoholic fatty liver disease (2018) Plantar warts Polydipsia Reactive airways dysfunction syndrome Rheumatoid arthritis Shakiness Shoulder pain Sleep apnea Tachycardia (2014) Weight gain Well adult exam Surgical History Anesthesia Hx of shoulder surgery (04/2015) Family History Father Hypertension Mother History of heart disease Stroke Social History Smoking Status: Current every day smoker Tobacco: How many years used: 27 second hand exposure: No alcohol intake: current substance use type: does not use, former substance user, marijuana and crack/cocaine Smoking Status: Current every day smoker tobacco type: vaping alcohol intake frequency: holidays/special occasions only Substance Use Type: does not use Exam <MALAIKA Awan Last Filed: 07/30/23 16:48> Narrative Exam Narrative: Const General:?cooperative, healthy appearing and comfortable [facility] Head:?normal to inspection Ears:?hearing grossly normal bilaterally Nose:?external nose normal Face and sinus:?normal facial exam and sinuses nontender Mouth:?oral mucosae normal Throat:?posterior oropharynx normal Eyes General:?appearance normal, both eyes and all related structures Neck Neck:?normal visual inspection and no lymphadenopathy noted Resp Effort & Inspection:?normal respiratory effort Auscultation:?clear to auscultation bilaterally Cardio Rate:?regular rate Rhythm:?regular rhythm Integumentary There is a 2 cm crescent-shaped laceration to the palmar aspect of the left distal finger, just above the DIP. No deeper structures visualized on exam. There is full range of motion. Patient appears neurovascularly intact. Neuro General:?patient alert, patient awake and patient oriented x3 Initial Vital Signs Initial Vital Signs: Vital Signs Temperature 97.3 F L 07/30/23 13:41 Pulse Rate 114 H 07/30/23 13:41 Respiratory Rate 20 07/30/23 13:41 Blood Pressure 169/91 H 07/30/23 13:41 Pulse Oximetry 97 07/30/23 13:41 Oxygen Delivery Method Room Air 07/30/23 13:41 <Freida Figueroa DO - Last Filed: 08/04/23 07:32> Initial Vital Signs Initial Vital Signs: Vital Signs Temperature 97.3 F L 07/30/23 13:41 Pulse Rate 114 H 07/30/23 13:41 Respiratory Rate 20 07/30/23 13:41 Blood Pressure 169/91 H 07/30/23 13:41 Pulse Oximetry 97 07/30/23 13:41 Oxygen Delivery Method Room Air 07/30/23 13:41 Procedures <MALAIKA Awan Last Filed: 07/30/23 16:48> Laceration Repair Laceration 1: Site: hand Side (If applicable): left Size (cm): 2 Description: other ([place] shaped) Local Anesthetic: lidocaine 1% Amount of anesthesia used (mL): 6 Pre-repair: wound explored, irrigated extensively and deep structures intact Skin layer closed with: nylon Skin layer suture size: 5-0 Number of sutures: 5 Technique: simple, interrupted Course <Zaki Sandy PA-C - Last Filed: 07/30/23 16:48> Orders Ordered: Discontinued Medications Lidocaine HCl (Lidocaine 1% (Pf) 5 Ml) 10 ml INJ NOW ONE Stop: 07/30/23 15:07 Last Admin: 07/30/23 16:04 Dose: 5 ml Documented By: SILVANO Vital Signs Vital signs: Vital Signs - 8 hr 07/30/23 13:41 Temperature 97.3 F L Pulse Rate 114 H Respiratory Rate 20 Blood Pressure 169/91 H Pulse Oximetry 97 Oxygen Delivery Method Room Air <Freida Figueroa DO - Last Filed: 08/04/23 07:32> Orders Ordered: Discontinued Medications Lidocaine HCl (Lidocaine 1% (Pf) 5 Ml) 10 ml INJ NOW ONE Stop: 07/30/23 15:07 Last Admin: 07/30/23 16:04 Dose: 5 ml Documented By: SILVANO Vital Signs Vital signs: Vital Signs - 8 hr 07/30/23 13:41 Temperature 97.3 F L Pulse Rate 114 H Respiratory Rate 20 Blood Pressure 169/91 H Pulse Oximetry 97 Oxygen Delivery Method Room Air MDM - Extremity Injury (Upper) <Zaki Sandy PA-C - Last Filed: 07/30/23 16:48> [facility] Narrative Medical decision making narrative: 53-year-old male presents to the ED status post a left middle finger injury sustained just prior to arrival. Concern for fracture/dislocation versus laceration versus other. Will obtain x-ray. Will reassess. X-ray shows nondisplaced fracture of the radial aspect of the distal phalanx of the DIP joint. Will repair laceration with sutures. Will start patient on antibiotics. Laceration was repaired with 5 sutures. Sutures will need to be removed in 7-10 days. Prescribed antibiotics. Wound care, signs of infection discussed with patient. ED return precautions discussed with patient. Patient verbalized understanding. Medical records reviewed: Yes Discharge Plan Departure Patient Disposition: Home Clinical Impression: Laceration Finger fracture Qualifiers: Encounter type: initial encounter Finger: middle finger Fracture type: open Phalanx: distal Fracture alignment: nondisplaced Laterality: left Qualified Code(s): S62.663B - Nondisplaced fracture of distal phalanx of left middle finger, initial encounter for open fracture Instructions: DI for Laceration Repair, DI for Fracture Activity Restrictions/Additional Instructions: You were evaluated in the ED today for a finger injury. The x-ray did show a nondisplaced fracture of the left middle finger. The laceration was repaired with 5 sutures. The sutures will need to be removed in 7-10 days. You may go to your PCP, urgent care clinic or return to the ED for suture removal. Please watch for signs of infection including worsening redness, pain, swelling, warmth, discharge. You are being prescribed an antibiotic since you have an open fracture. Return to the ED if you have any signs of infection, worsening symptoms, numbness, tingling, weakness. Prescriptions: No Action cyclobenzaprine 5 mg tablet See Rx Instructions .ROUTE .COMPLEX Qty: 180 1RF Dose Instruction: take 2 tablet by mouth at bedtime if needed for muscle spasm MAY MAKE DROWSY DO NOT DRIVE DRURING THERAPY Rx Instructions: take 2 tablet by mouth at bedtime if needed for muscle spasm MAY MAKE DROWSY DO NOT DRIVE DRURING THERAPY diltiazem HCl 120 mg capsule,extended release 24hr 120 mg PO DAILY Qty: 90 1RF duloxetine 60 mg capsule,delayed release(DR/EC) 60 mg PO DAILY Qty: 90 3RF Rx Instructions: Start taking 60 mg once a day pregabalin 300 mg capsule 300 mg PO DAILY Qty: 90 1RF omeprazole 20 mg capsule,delayed release(DR/EC) 20 mg PO DAILY Qty: 90 1RF Rx Instructions: DUE FOR APPT 06/23/23 metoprolol succinate 25 mg tablet extended release 24 hr 25 mg PO DAILY Qty: 90 3RF rosuvastatin 5 mg tablet 5 mg PO BEDTIME Qty: 90 3RF Referrals: Mello Herzog DO [Primary Care Provider] - Stand Alone Forms: Patient Portal/API ED Sign-out <Freida Figueroa DO - Last Filed: 08/04/23 07:32> Cosign ED Attending Willardature Attestation: I was available for consultation.
[2023-07-30] MEDS: LIDOCAINE 1% (PF) 5 ML 10 ML INJ (16:04)
[2023-07-30 16:45] VITALS: BP 134/78; PULSE 87; RESP 20; TEMP 37.1; O2SAT 99
== END 2023-07-30 16:46 | disposition home or self-care (01) ==
PROVIDERS: Emergency Provider Student in an Organized Health Care Education/Training Program; PCP Family Medicine
DX: S61.213A Laceration without foreign body of left middle finger without damage to nail, initial encounter (principal); S62.663A Nondisplaced fracture of distal phalanx of left middle finger, initial encounter for closed fracture; W27.0XXA Contact with workbench tool, initial encounter
CPT/HCPCS: 12001; 73140; 99283

== ENCOUNTER → 2024-10-20 08:01 | Outpatient (CLI) | payer BC, SELFPAY ==
[2024-10-20 08:34] LABS: Add Manual Diff / Slide Review NO; Basophils Absolute Auto 100 /uL (0-100); Basophils Percent Auto 2.2 % (0-2); Eosinophils Absolute Auto 100 /uL (0-450); Eosinophils Percent Auto 1.5 % (2-4); Hematocrit 44.5 % (41-53); Hemoglobin 15.5 g/dL (13.5-17.5); Lymphocytes Absolute Auto 1900 /uL (1100-4500); Lymphocytes Percent Auto 30.8 % (25-40); Mean Corpuscular HGB Conc 34.8 % (30-36); Mean Corpuscular Hemoglobin 30.7 PG (26-34); Mean Corpuscular Volume 88.2 fL (80-100); Monocytes Absolute Auto 500 /uL (0-900); Monocytes Percent Auto 8.8 % (3-14); Neutrophils Absolute Auto 3400 /uL (1500-7000); Neutrophils Percent Auto 56.7 % (50-75); Platelet Count 221 X10^3/uL (150-400); Red Blood Cell Count 5.04 X10^6/uL (4.5-5.9)
[2024-10-20 08:46] LABS: Alanine Aminotransferase 39 IU/L (<50); Albumin 4.7 g/dL (3.5-5.0); Albumin Globulin Ratio 1.8 (1.0-2.8); Alkaline Phosphatase 94 U/L (38-126); Aspartate Aminotransferase 40 IU/L (17-59); Bilirubin Total 0.6 mg/dL (0.2-1.3); Blood Urea Nitrogen 12 mg/dL (9-20); Calcium 9.4 mg/dL (8.4-10.2); Carbon Dioxide 26 mmol/L (22-32); Chloride 105 mmol/L (98-107); Cholesterol 118 mg/dL (140-199); Estimated Glomerular Filt Rate > 60 mL/min (>60); Globulin 2.6 g/dL (1.7-4.1); Glucose 114 mg/dL (70-100); HDL Cholesterol 34 mg/dL (40-60); HEMOLYSIS < 15 (0-50); LDL Cholesterol Calculated 62 mg/dL (<100); Potassium 4.8 mmol/L (3.4-5.1); Sodium 140 mmol/L (137-145); Total Protein 7.3 g/dL (6.3-8.2); Triglycerides 112 mg/dL (35-150); Uric Acid 6.4 mg/dL (3.5-8.5)
[2024-10-20 09:17] LABS: Prostate Specific Antigen 0.868 ng/mL (0.10-4.00)
== END ==
PROVIDERS: PCP Family Medicine; Referring Provider Family Medicine; Visit Provider Family Medicine
DX: Z00.00 Encounter for general adult medical examination without abnormal findings (principal); M54.42 Lumbago with sciatica, left side; G89.29 Other chronic pain; M51.26 Other intervertebral disc displacement, lumbar region; I10 Essential (primary) hypertension; M10.9 Gout, unspecified; E78.2 Mixed hyperlipidemia
CPT/HCPCS: 36415; 80053; 80061; 84153; 84550; 85025

== ENCOUNTER 2025-01-20 11:08 | Day surgery (SDC) | payer BC, SELFPAY ==
[2025-01-20 11:28] VITALS: BP 134/90; PULSE 78; RESP 16; TEMP 36.3; O2SAT 98
[2025-01-20] MEDS: LACTATED RINGERS 1,000 ML 84 ML IV (11:33)
--- NOTE | 2025-01-20 11:57 | PM.HP.IH.1 ---
History of Present Illness History of Present Illness Date Patient Seen: 01/20/25 Time Patient Seen: 11:57 Chief complaint: Colonoscopy Narrative: Delfino is a 54-year-old man here for a colonoscopy. He has never had a colonoscopy before. No first-degree relatives with colon cancer. [facility] Medical History (Updated 01/20/25 @ 11:58 by Stas Luque MD) Cellulitis Lung nodule seen on imaging study Well adult exam Chronic low back pain with left-sided sciatica Lumbar disc herniation Lumbar disc narrowing Nonalcoholic fatty liver disease (2018) BMI 40.0-44.9, adult Weight gain Elevated liver enzymes Mixed hyperlipidemia Polydipsia Shakiness Plantar warts Rheumatoid arthritis Sleep apnea Shoulder pain Gout Foot pain Chicken pox Brain lesion (2017) Mild intermittent asthma Tachycardia (2014) Reactive airways dysfunction syndrome GERD (gastroesophageal reflux disease) Carpal tunnel syndrome (06/2017) DDD (degenerative disc disease), cervical (04/2017) Fibromyalgia (2015) Edema (Unknown) Nodule of right lung (08/2015) Depression (Unknown) Hyperlipemia (Unknown) Migraines (Unknown) Chronic back pain (Unknown) Hypertension (Unknown) Surgical History Anesthesia Hx of shoulder surgery (04/2015) Family History Father Hypertension Mother History of heart disease Stroke Social History Smoking Status: Current every day smoker Tobacco: How many years used: 27 second hand exposure: No alcohol intake: never substance use type: does not use, former substance user, marijuana and crack/cocaine Meds Home Medications and Allergies Home Medications ?Medication ?Instructions ?Recorded ?Confirmed ?Type cyclobenzaprine 5 mg tablet See Rx Instructions .Route 04/22/24 01/20/25 Rx .COMPLEX #180 tabs diltiazem HCl 120 mg 120 mg PO DAILY #90 caps 04/22/24 01/20/25 Rx capsule,extended release 24 hr duloxetine 60 mg capsule,delayed 60 mg PO DAILY #90 caps 04/22/24 01/20/25 Rx release metoprolol succinate 25 mg 25 mg PO DAILY #90 tabs 04/22/24 01/20/25 Rx tablet,extended release 24 hr omeprazole 20 mg capsule,delayed 20 mg PO DAILY #90 caps 04/22/24 01/20/25 Rx release rosuvastatin 5 mg tablet 5 mg PO BEDTIME #90 tabs 04/22/24 01/20/25 Rx pregabalin 300 mg capsule 300 mg PO DAILY #90 caps 12/03/24 01/20/25 Rx Allergies Allergy/AdvReac Type Severity Reaction Status Date / Time Penicillins (PENICILLINS) Allergy Unknown Verified 01/20/25 11:23 Exam Vital Signs (past 8 hours): - 01/20/25 11:28 Temperature 97.3 F L Pulse Rate 78 Respiratory Rate 16 Blood Pressure 134/90 Pulse Oximetry 98 Oxygen Delivery Method Room Air Oxygen Delivery Method Room Air Const General: No acute distress Assessment & Plan Assessment and plan (1) Colon cancer screening: Status: Acute Plan Colonoscopy Time-Based Coding :: [TOTAL MINUTES] spent with patient and on the chart (including review of chart, obtaining history, exam, reviewing outside data, placing orders, documenting exam and treatment plan, and counseling patient) on [DATE]. [facility] Medical Director Document charge(s): No
--- NOTE | 2025-01-20 12:27 | P.OP.COLON_ITS ---
Operative Date/Time/Diagnoses Date of procedure: 01/20/25 Time of procedure: 12:28 Pre-op diagnosis: Colon cancer screening Post-op diagnosis: same Procedure & Clinicians Study performed: Colonoscopy Same procedure(s) as scheduled: Yes Surgeon: Stas Luque Procedure Notes Procedure in detail: Surgeon: Stas Luque MD Anesthesia: Traci Nails CRNA Procedure: The patient was brought to the endoscopy suite, placed in left lateral decubitus position. The patient was connected to monitoring devices. A time-out was performed. Sedation was administered. Once the patient was adequately sedated, a digital rectal exam was performed and was normal. The scope was then inserted and advanced to the cecum where the appendiceal orifice was identified and photographed. The scope was then slowly withdrawn over greater than 6 minutes. The mucosa was thoroughly inspected. No polyps or o ther abnormalities were identified. The scope was retroflexed in the rectum. The scope was straightened and removed. The patient was awakened and brought to recovery. Scope withdrawal time: 9 minutes Sedation time: 13 minute EBL: 0 Findings: Normal colon Post-procedure Recommendations: Colonoscopy in 10 years Disposition: PACU
[2025-01-20 12:29] VITALS: BP 121/77; PULSE 80; RESP 10; TEMP 36.9; O2SAT 95
[2025-01-20 12:34] VITALS: BP 115/80; PULSE 76; RESP 13; O2SAT 98
[2025-01-20 12:39] VITALS: BP 125/87; PULSE 81; RESP 14; O2SAT 100
== END 2025-01-20 12:49 | disposition home or self-care (01) ==
PROVIDERS: PCP Family Medicine; Referring Provider Surgery; Visit Provider Surgery
PROC: 0DJD8ZZ Inspection of Lower Intestinal Tract, Via Natural or Artificial Opening Endoscopic (ICD-10-PCS; CPT 45378; principal; 2025-01-20 13:00)
DX: Z12.11 Encounter for screening for malignant neoplasm of colon (principal)
CPT/HCPCS: 45378; J2704